=== PATIENT | male | born 1955 | race Caucasian/White ===

== ENCOUNTER 2023-08-28 13:47 | Emergency (ER) | payer MEDICARE, SELFPAY ==
[2023-08-28 13:51] VITALS: BP 150/84
[2023-08-28 14:20] LABS: % Basophils 0.6 % (0-2); % Eosinophils 1.6 % (0-6); % Lymphocytes 38.3 % (20.5-51.1); % Monocytes 16.4 % (1.7-9.3); % Neutrophils 43.1 % (42.2-75.2); Absolute Eosinophils 0.1 10^3/uL (0-0.7); Absolute Lymphocytes 1.2 10^3/uL (1.2-3.4); Absolute Monocytes 0.5 10^3/uL (0.1-0.6); Absolute Neutrophils 1.3 10^3/uL (1.4-6.5); Hematocrit 31.2 % (39.0-52.0); Hemoglobin 11.1 g/dL (13.0-18.0); Mean Corp Hgb Conc. 35.6 g/dL (33.0-37.0); Mean Corpuscular Hgb 30.2 pg (27.0-31.0); Mean Corpuscular Volume 84.8 fL (80.0-94.0); Mean Platelet Volume 9.4 fL (7.4-10.4); Nucleated Red Blood Cells % 0 % (-); Platelet Count 126 10^3/uL (130-400); Red Blood Cell Count 3.68 10^6/uL (4.70-6.10); White Blood Cell Count 3.1 10^3/uL (4.8-10.8)
[2023-08-28 14:32] LABS: ALT (SGPT) 21 U/L (0-50); AST (SGOT) 24 U/L (17-59); Albumin 4.3 g/dl (3.5-5.0); Alkaline Phosphatase 65 U/L (38-126); Blood Urea Nitrogen 41 mg/dl (9-20); Calcium 9.4 mg/dl (8.4-10.2); Carbon Dioxide 26 mmol/L (22-30); Chloride 104 mmol/L (98-107); Glucose 89 mg/dl (70-99); Potassium 4.8 mmol/L (3.5-5.1); Sodium 140 mmol/L (135-145); Total Bilirubin 0.4 mg/dl (0.2-1.3); Total Protein 6.8 g/dl (6.3-8.2); eGFR 22.07
[2023-08-28 16:48] VITALS: BMI 22.1
[2023-08-28 17:13] LABS: Urine Albumin 2+ (Neg - Trace); Urine Bilirubin Negative (Negative); Urine Character Clear (Clear); Urine Color Yellow; Urine Glucose Negative (Negative); Urine Ketone Negative (Negative); Urine Leukocyte Negative (Negative); Urine Nitrite Negative (Negative); Urine Occult Blood Negative (Negative); Urine Urobilinogen Negative (Neg - 1+)
--- NOTE | 2023-08-28 17:25 | EDRN ---
Lab tests faxed here from [facility]: on 08/18 BUN 41 and creat 3.17; on 06/07 BUN 43 and creat 3.27.
[2023-08-28 17:30] LABS: Urine Squamous Cell 0-2 /LPF (Few); Urine Urothelial Cell 0-2 /LPF (FEW)
[2023-08-28 17:31] LABS: Urine White Cell 0-2 /HPF (0-5)
[2023-08-28 17:33] VITALS: BP 158/85
--- NOTE | 2023-08-28 17:58 | EDRN ---
Dr. Nascimento in room w/pt and caregiver at this time.
--- NOTE | 2023-08-28 18:09 | EDRN ---
Per Dr. Nascimento pt administered a boxed lunch at this time.
--- NOTE | 2023-08-28 18:48 | ED.GENMED ---
History of Present Illness
General
Chief Complaint: Change in Mental Status
Source: patient
Exam Limitations: none
Time Seen by Provider: 08/28/23 16:27
Nursing documentation reviewed up to this point in time: agreed with
Travel History
Have you had any contact with someone who has COVID-19?: No
Do you have any symptoms of coronavirus? Fever > 100 degrees, chills, cough, shortness of breath, sore throat, loss of taste or smell, muscle aches, or headache?: No
History of Present Illness
History of Present Illness:
Patient with history of cerebral palsy and mild retardation, presents to ED accompanied by caregiver at long-term care facility, secondary to mental status change noted by staff members yesterday. Per caregiver, patient had a accidental bowel
movement in his pants yesterday morning. However patient proceeded to grab his feces with his hands and walked into the kitchen, which is very unlike himself. Patient has had a progressive change in his behavior over the same with months, after
Depakote and Tegretol was discontinued secondary to worsening renal function. Physician overseeing the patient, has not started any new medications. At the time of evaluation ED, patient is alert and awake, and is without any complaints.
Review of Systems
Review of Systems
Allergies reviewed?: Yes
All Other Systems: ROS reviewed and negative except as documented in HPI and ROS
Constitutional: Reports no symptoms
EENT: Reports no symptoms
Respiratory: Reports no symptoms
Cardiac: Reports no symptoms
ABD/GI: Reports no symptoms
: Reports no symptoms
Musculoskeletal: Reports no symptoms
Skin: Reports no symptoms
Neurological: Reports other (behavioral change)
Phy Exam
Physical Exam
Physical Exam:
Physical Exam
General: no apparent distress, not acutely ill. aferbrile
Head: nc/at. eomi
Neck: supple. no meningeal signs.
Heart: s1/s2 regular rate and rhythm, no murmur. equal radial pulses.
Lungs: no acute respiratory distress. clear bilaterally
Abdomen: normal bowel sounds. not tender.
Neuro: alert and oriented. no focal neurological deficits
Skin: no rash
Psychiatric: well kept. interactive and cooperative
Extremities: no edema. no calf tenderness.
Course
Orders/Labs/Results
Orders:
Orders
08/28/23 14:11
Complete Blood Count/With Diff Urgent
Comprehensive Metabolic Panel Urgent
08/28/23 16:41
Urinalysis Reflex To Culture Urgent
Date Specimen was Collected: 08/28/23
Time Specimen was Collected: 14:02
Urine Microscopic Reflex Cult Urgent
08/28/23 18:03
CT Head W/o Iv Contrast Urgent
Comment:
Reason For Exam: mental status change
Abnormal Lab Results
08/28/23 08/28/23
14:11 16:41
WBC 3.1 L 10^3/uL
(4.8-10.8)
RBC 3.68 L 10^6/uL
(4.70-6.10)
Hgb 11.1 L g/dL
(13.0-18.0)
Hct 31.2 L %
(39.0-52.0)
Plt Count 126 L 10^3/uL
(130-400)
Absolute Neuts (auto) 1.3 L 10^3/uL
(1.4-6.5)
Monocytes % 16.4 H %
(1.7-9.3)
BUN 41 H mg/dl
(9-20)
Creatinine 3.0 H mg/dL
(0.7-1.3)
Urine Albumin (Reflex) 2+ A
(Neg - Trace)
08/28/23 14:11
08/28/23 14:11
Vital Signs
Initial and Last Documented VS:
Initial Vital Signs
Temp Pulse Resp BP Pulse Ox
98.0 F 52 16 150/84 98
08/28/23 13:51 08/28/23 13:51 08/28/23 13:51 08/28/23 13:51 08/28/23 13:51
Last Documented Vital Signs
Temp Pulse Resp BP Pulse Ox
98.0 F 53 16 158/85 100
08/28/23 13:51 08/28/23 17:33 08/28/23 17:33 08/28/23 17:33 08/28/23 17:33
MDM/Problems Addressed
MDM/Problems Addressed:
CT head: No acute findings. In addition, patient is afebrile, hemodynamically stable, along with normal blood work and urinalysis. As such, patient will be discharged back to his long-term residence, with recommendation to continue to follow-up
with primary care physician for reevaluation. There does not appear to be any medical cause for his behavior changes at this time.
*Critical Care Note
Total Time (30-74mins, 75-104mins- exclusive of procedures): Not Applicable
ED Attending Note
-
Portions of this chart may have been created with voice recognition software.� Occasional wrong word or��sound alike� substitutions may have occurred due to the inherent limitations of voice recognition software.
Discharge Plan
Departure
Patient Disposition: Home (Routine Discharge)
Date of Disposition: 08/28/23
Time of Disposition: 19:42
Patient with high blood pressure during this ER visit?: Yes
Discharge Problem:
Altered mental status
Instructions: Altered Mental Status (DC)
Referrals:
Blanca Izquierdo, DO [Family Provider] -
Activity Restrictions/Additional Instructions:
As discussed, you are being discharged back to your long-term residence for continual care. Strongly recommend an evaluation with your physician for further treatment, including potential medication adjustment.
Interventions
Interventions:
*Risk Screen - Suicide Last Done: 08/28/23 16:49
*General Assessment Last Done: 08/28/23 16:48
*Neglect/Abuse Screening Last Done: 08/28/23 16:48
ED- Fall Risk Assessment Last Done: 08/28/23 16:49
*ED COVID-19 Vaccine History Last Done: 08/28/23 13:51
*Nursing Disposition Last Done: 08/28/23 20:01
ED- Neurological Assessment Last Done: 08/28/23 17:28
ED Swallowing Screen Last Done: 08/28/23 17:27
Discharge Date and Time
Discharge Date/Time: 08/28/23 20:01
== END 2023-08-28 20:01 | disposition home or self-care (01) ==
LOC: EMR 13:47
PROVIDERS: Emergency Medicine; EMERGENCY PHYSICIAN Emergency Medicine; FAMILY PHYSICIAN Internal Medicine
DX: R41.82 Altered mental status, unspecified (principal); I10 Essential (primary) hypertension
CPT/HCPCS: 99284; 70450; 80053; 81003; 81015; 85025